=== PATIENT | female | born 1960 | race Caucasian/White ===

== ENCOUNTER 2022-02-13 15:22 | Inpatient (IN) | payer OTHER ==
[2022-02-13 16:16] LABS: #Monocytes 0.9 10x3/uL (0.0-1.1); #Neutrophils 8.5 10x3/uL (1.5-8.4); %Basophils 0.3 % (0.0-2.0); %Eosinophils 0.1 % (0.0-6.0); %Lymphocytes 18.9 % (18.0-47.0); %Monocytes 7.4 % (0.0-10.0); %Neutrophils 72.9 % (40.0-75.0); Hemoglobin 15.2 g/dL (12.0-15.5); Mean Corpuscular HGB CONC 32.6 g/dL (32.0-36.0); Mean Corpuscular Hemoglobin 26.6 pg (27.0-33.0); Mean Corpuscular Volume 81.6 fl (81.6-98.3); Mean Platelet Volume 10.3 fl (7.4-10.4); Platelet Count 283 10x3/uL (150-450); Red Blood Cell (RBC) Count 5.71 10x6/uL (3.90-5.03); White Blood Cell (WBC) Count 11.7 10x3/uL (3.5-10.5)
[2022-02-13] MEDS ORDERED: Ondansetron PF 4 MG/2 ML Vial ONE (16:18)
[2022-02-13 16:26] LABS: ALT (SGPT) 245 U/L (8-55); AST (SGOT) 296 U/L (5-34); Albumin 4.5 g/dL (3.4-4.8); Alkaline Phosphatase 250 U/L (40-110); Anion Gap 22 mmol/L (10-20); BUN (Urea Nitrogen) 30 mg/dL (9.8-20.1); Bilirubin, Total 2.1 mg/dL (0.2-1.2); Calc. Creatinine Clearance 0 mL/min (70-130); Calcium 9.9 mg/dL (7.8-10.44); Carbon Dioxide 18 mmol/L (23-31); Chloride 97 mmol/L (98-107); Estimated GFR 43; Globulin 3.3 g/dL (2.4-3.5); Glucose 80 mg/dL (80-115); Magnesium 2.1 mg/dL (1.6-2.6); Protein, Total 7.8 g/dL (5.8-8.1); Sodium 132 mmol/L (136-145)
[2022-02-13] MEDS ORDERED: Digoxin 0.5 MG/2 ML AMP ONE ×2 (17:06→18:37)
[2022-02-13 17:50] LABS: SARS-CoV-2 NAA Rapid Test Not Detected (NotDetected)
[2022-02-13] MEDS ORDERED: Amiodarone 150 MG/3 ML VIAL ONE (19:24)
[2022-02-13] MEDS ORDERED: Amiodarone In Dextrose 0 ML ONE (19:25)
[2022-02-13] MEDS ORDERED: HYDROcodone/Acetaminophen 5/325 mg Tablet PO PRN (20:24)
[2022-02-13] MEDS ORDERED: Bisacodyl 5 MG TAB PO PRN (20:24)
[2022-02-13] MEDS ORDERED: Ondansetron PF 4 MG/2 ML Vial IVP PRN (20:24)
[2022-02-13] MEDS ORDERED: Nitroglycerin 0.4 MG TAB (25 Tab Bottle) SL PRN (20:27)
[2022-02-13] MEDS ORDERED: Lorazepam 0.5 MG TAB PO PRN (20:29)
[2022-02-13] MEDS ORDERED: HumaLOG 300 UNITS/3 ML VIAL SC PRN (20:32)
[2022-02-13] MEDS ORDERED: Electrolyte Replacement Protocol 1 EACH FS PRN (20:45)
[2022-02-13] MEDS ORDERED: Sotalol HCl 80 MG TAB PO SCH (22:15)
[2022-02-13] MEDS ORDERED: Apixaban 2.5 MG TAB PO SCH (22:15)
[2022-02-13] MEDS ORDERED: Doxepin HCl 25 MG CAP PO SCH (22:15)
[2022-02-13] MEDS ORDERED: Ezetimibe 10 MG TAB PO SCH (22:15)
[2022-02-13 22:25] VITALS: BMI 24.9
[2022-02-13 22:39] LABS: Lactic Acid 2.3 mmol/L (0.5-2.2)
[2022-02-13 22:48] LABS: Troponin I 0.018 ng/mL (< 0.028)
[2022-02-13] MEDS: Digoxin 0.125 MG TAB PO SCH (23:17)
[2022-02-13 23:33] LABS: Troponin I 0.021 ng/mL (< 0.028)
[2022-02-14] MEDS ORDERED: FLU VACC QS2022-23(6MOS UP)/PF 60 MCG/0.5 ML SYRINGE IM ONE (04:30)
[2022-02-14] MEDS: Digoxin 0.125 MG TAB PO SCH (05:14)
[2022-02-14 05:22] LABS: #Monocytes 1.4 10x3/uL (0.0-1.1); #Neutrophils 7.1 10x3/uL (1.5-8.4); %Basophils 0.4 % (0.0-2.0); %Eosinophils 0.1 % (0.0-6.0); %Lymphocytes 23.7 % (18.0-47.0); %Monocytes 12.5 % (0.0-10.0); %Neutrophils 62.9 % (40.0-75.0); Digoxin 2.94 ng/mL (0.8-2.0); Hemoglobin 12.6 g/dL (12.0-15.5); Mean Corpuscular HGB CONC 32.5 g/dL (32.0-36.0); Mean Corpuscular Hemoglobin 26.5 pg (27.0-33.0); Mean Corpuscular Volume 81.7 fl (81.6-98.3); Mean Platelet Volume 10.6 fl (7.4-10.4); Platelet Count 222 10x3/uL (150-450); RBC Distribution Width 17.5 % (11.5-14.5); Red Blood Cell (RBC) Count 4.75 10x6/uL (3.90-5.03); White Blood Cell (WBC) Count 11.2 10x3/uL (3.5-10.5)
[2022-02-14 05:24] LABS: ALT (SGPT) 207 U/L (8-55); AST (SGOT) 237 U/L (5-34); Albumin 3.4 g/dL (3.4-4.8); Alkaline Phosphatase 187 U/L (40-110); Anion Gap 15 mmol/L (10-20); BUN (Urea Nitrogen) 27 mg/dL (9.8-20.1); Bilirubin, Total 1.2 mg/dL (0.2-1.2); Calc. Creatinine Clearance 51 mL/min (70-130); Calcium 8.9 mg/dL (7.8-10.44); Carbon Dioxide 19 mmol/L (23-31); Chloride 104 mmol/L (98-107); Cholesterol 85 mg/dl (< 200 Desired); Estimated GFR 51; Globulin 2.6 g/dL (2.4-3.5); Glucose 128 mg/dL (80-115); HDL Cholesterol 17 mg/dL (>60 Neg Risk); LDL Cholesterol, Calculated 51 mg/dL; Potassium 4.3 mmol/L (3.5-5.1); Sodium 134 mmol/L (136-145); Triglycerides 85 mg/dL (Less than 150)
[2022-02-14 08:05] LABS: Bilirubin Neg (Negative); Blood, Urine 25 (Negative); Glucose, Urine (Dipstick) 250 mg/dL (Negative); Ketone, Urine Negative (Negative); Leukocyte 25 (Negative); Nitrite Negative (Negative); Protein, Urine (Dipstick) 100 mg/dl (Neg-Trace); Urobilinogen Normal mg/dL (Less than 2)
[2022-02-14 08:21] LABS: Clarity Hazy (Clear)
[2022-02-14 08:24] LABS: Bacteria/HPF 2+ HPF (None Seen)
[2022-02-14 08:25] LABS: Mucous/LPF 2+ LPF (<2+); White Blood Cell Cast 0-3 LPF (None Seen)
[2022-02-14] MEDS ORDERED: Sotalol HCl 80 MG TAB PO SCH (09:00)
[2022-02-14] MEDS ORDERED: Furosemide 40 MG TAB PO SCH (09:00)
[2022-02-14] MEDS ORDERED: Digoxin 0.25 MG TAB PO SCH (09:00)
[2022-02-14] MEDS: Atorvastatin Calcium 40 MG TAB PO SCH (09:21)
[2022-02-14] MEDS: Sertraline 100 MG TAB PO SCH (09:21)
[2022-02-14] MEDS: Glimepiride 2 MG TAB PO SCH (09:21)
[2022-02-14] MEDS: Aspirin Chewable 81 MG TAB PO SCH (09:21)
[2022-02-14] MEDS: Sodium Bicarbonate Tab 325 MG TAB PO SCH ×2 (09:22→21:22)
[2022-02-14] MEDS: Apixaban 2.5 MG TAB PO SCH ×2 (09:22→21:22)
[2022-02-14] MEDS: Empagliflozin 25 MG TAB PO SCH (09:22)
[2022-02-14 11:59] LABS: Creatinine, Urine 69.71 mg/dL (47-110)
[2022-02-14 15:24] LABS: Magnesium 1.9 mg/dL (1.6-2.6)
[2022-02-14] MEDS ORDERED: Magnesium 2 GM/50 ML(in water) 2 GM in Premix Bag 1 BAG IVPB SCH (16:45)
[2022-02-14 16:57] LABS: Sodium, Urine 23 mmol/L (Not Available); Urea Nitrogen, Random Urine 790 mg/dl
[2022-02-14] MEDS ORDERED: Doxepin HCl 25 MG CAP PO SCH (21:00)
[2022-02-14] MEDS ORDERED: Ezetimibe 10 MG TAB PO SCH (21:00)
[2022-02-14] MEDS: Sotalol HCl 80 MG TAB PO SCH (21:21)
[2022-02-14 21:25] LABS: Anion Gap 14 mmol/L (10-20); BUN (Urea Nitrogen) 25 mg/dL (9.8-20.1); Calc. Creatinine Clearance 49 mL/min (70-130); Calcium 9.6 mg/dL (7.8-10.44); Carbon Dioxide 32 mmol/L (23-31); Chloride 99 mmol/L (98-107); Estimated GFR 49; Glucose 125 mg/dL (80-115); Potassium 4.3 mmol/L (3.5-5.1); Sodium 141 mmol/L (136-145)
[2022-02-15 06:52] LABS: Hemoglobin 13.2 g/dL (12.0-15.5); Mean Corpuscular HGB CONC 31.9 g/dL (32.0-36.0); Mean Corpuscular Hemoglobin 26.2 pg (27.0-33.0); Mean Corpuscular Volume 82.1 fl (81.6-98.3); Mean Platelet Volume 10.5 fl (7.4-10.4); Platelet Count 186 10x3/uL (150-450); RBC Distribution Width 17.7 % (11.5-14.5); Red Blood Cell (RBC) Count 5.04 10x6/uL (3.90-5.03); White Blood Cell (WBC) Count 7.2 10x3/uL (3.5-10.5)
[2022-02-15 07:30] LABS: MDiff Complete? YES
[2022-02-15 07:37] LABS: Eosinophils 1 % (0-10); Lymphocytes 18 % (21-51); Monocytes 14 % (0-10); Neutrophil 66 % (42-75)
[2022-02-15 07:40] LABS: Platelet Morphology Comment Appears Adequate; RBC Morphology Normal
[2022-02-15] MEDS: Apixaban 2.5 MG TAB PO SCH (08:46)
[2022-02-15] MEDS: Aspirin Chewable 81 MG TAB PO SCH (08:46)
[2022-02-15] MEDS: Empagliflozin 25 MG TAB PO SCH (08:47)
[2022-02-15] MEDS: Atorvastatin Calcium 40 MG TAB PO SCH (08:47)
[2022-02-15] MEDS: Sertraline 100 MG TAB PO SCH (08:47)
[2022-02-15] MEDS: Glimepiride 2 MG TAB PO SCH (08:48)
[2022-02-15] MEDS: Sodium Bicarbonate Tab 325 MG TAB PO SCH (08:48)
[2022-02-15] MEDS: Sotalol HCl 80 MG TAB PO SCH (08:49)
[2022-02-15 09:18] LABS: ALT (SGPT) 177 U/L (8-55); AST (SGOT) 158 U/L (5-34); Albumin 3.4 g/dL (3.4-4.8); Alkaline Phosphatase 209 U/L (40-110); Anion Gap 16 mmol/L (10-20); BUN (Urea Nitrogen) 18 mg/dL (9.8-20.1); Bilirubin, Total 1.3 mg/dL (0.2-1.2); Calc. Creatinine Clearance 65 mL/min (70-130); Calcium 8.8 mg/dL (7.8-10.44); Carbon Dioxide 27 mmol/L (23-31); Chloride 101 mmol/L (98-107); Estimated GFR 69; Globulin 2.7 g/dL (2.4-3.5); Magnesium 2.2 mg/dL (1.6-2.6); Potassium 3.4 mmol/L (3.5-5.1); Protein, Total 6.1 g/dL (5.8-8.1); Sodium 141 mmol/L (136-145)
[2022-02-15 09:20] LABS: ALT (SGPT) 176 U/L (8-55); AST (SGOT) 156 U/L (5-34); Albumin 3.3 g/dL (3.4-4.8); Alkaline Phosphatase 206 U/L (40-110); Bilirubin, Direct 0.7 mg/dL (0.1-0.3); Bilirubin, Total 1.3 mg/dL (0.2-1.2)
[2022-02-15 09:37] LABS: Glucose 49 mg/dL (80-115)
[2022-02-15] MEDS ORDERED: Potassium Chloride 20 MEQ TAB PO SCH (10:00)
[2022-02-15 17:17] VITALS: BP 110/70; TEMP 98.2
[2022-02-16] MEDS ORDERED: Digoxin 0.25 MG TAB PO SCH (09:00)
== END 2022-02-15 18:40 | disposition home or self-care (01) | DRG 291 ==
LOC: CSHERS 15:22 → CSHTELE 22:05
PROVIDERS: ADMIT Student in an Organized Health Care Education/Training Program; ATTEND Internal Medicine
DX: I13.0 Hypertensive heart and chronic kidney disease with heart failure and stage 1 through stage 4 chronic kidney disease, or unspecified chronic kidney disease (principal); I50.23 Acute on chronic systolic (congestive) heart failure; E87.1 Hypo-osmolality and hyponatremia; E87.20 Acidosis, unspecified; N17.9 Acute kidney failure, unspecified; I48.92 Unspecified atrial flutter; Z20.822 Contact with and (suspected) exposure to COVID-19; E11.22 Type 2 diabetes mellitus with diabetic chronic kidney disease; E87.6 Hypokalemia; F41.9 Anxiety disorder, unspecified; I25.10 Atherosclerotic heart disease of native coronary artery without angina pectoris; I48.0 Paroxysmal atrial fibrillation; I25.5 Ischemic cardiomyopathy; K21.9 Gastro-esophageal reflux disease without esophagitis; F32.9 Major depressive disorder, single episode, unspecified; N18.31 Chronic kidney disease, stage 3a; E78.5 Hyperlipidemia, unspecified; Z95.2 Presence of prosthetic heart valve; Z79.01 Long term (current) use of anticoagulants; Z79.899 Other long term (current) drug therapy; Z79.84 Long term (current) use of oral hypoglycemic drugs; Z88.8 Allergy status to other drugs, medicaments and biological substances; Z95.810 Presence of automatic (implantable) cardiac defibrillator; Z95.5 Presence of coronary angioplasty implant and graft; Z90.89 Acquired absence of other organs; Z87.891 Personal history of nicotine dependence
CPT/HCPCS: 36415; 36416; 71045; 76705; 80053; 80061; 80162; 81001; 82570; 83605; 83735; 83880; 84156; 84300; 84443; 84484; 84540; 85025; 87040; 93005; 93010; 94760; 96374; 96375; 96376; J0282; J1160; J2405; J3475

== ENCOUNTER 2022-09-24 10:03 | Outpatient (CLI) | payer OTHER ==
[2022-09-24 11:05] LABS: Mean Corpuscular HGB CONC 32.5 g/dL (32.0-36.0); Mean Corpuscular Volume 89.2 fl (81.6-98.3); Platelet Count 273 10x3/uL (150-450); RBC Distribution Width 13.3 % (11.5-14.5); Red Blood Cell (RBC) Count 4.83 10x6/uL (3.90-5.03); White Blood Cell (WBC) Count 10.9 10x3/uL (3.5-10.5)
[2022-09-24 11:14] LABS: Prothrombin Time 10.9 sec (9.5-12.1)
[2022-09-24 11:26] LABS: ALT (SGPT) 21 U/L (8-55); AST (SGOT) 27 U/L (5-34); Albumin 4.4 g/dL (3.4-4.8); Alkaline Phosphatase 195 U/L (40-110); Anion Gap 20 mmol/L (10-20); BUN (Urea Nitrogen) 27 mg/dL (9.8-20.1); Bilirubin, Total 0.4 mg/dL (0.2-1.2); Calc. Creatinine Clearance 0 mL/min (70-130); Calcium 9.8 mg/dL (7.8-10.44); Carbon Dioxide 20 mmol/L (23-31); Chloride 99 mmol/L (98-107); Estimated GFR 40; Globulin 3.5 g/dL (2.4-3.5); Glucose 222 mg/dL (80-115); Magnesium 2.4 mg/dL (1.6-2.6); Potassium 4.2 mmol/L (3.5-5.1); Protein, Total 7.9 g/dL (5.8-8.1); Sodium 135 mmol/L (136-145)
== END 2022-09-24 10:04 | disposition home or self-care (01) ==
LOC: CSHLAB 10:03
PROVIDERS: ATTEND Specialist
DX: Z01.812 Encounter for preprocedural laboratory examination (principal); I48.91 Unspecified atrial fibrillation
CPT/HCPCS: 80053; 83735; 85027; 85610

== ENCOUNTER → 2022-09-25 | Day surgery (SDC) | payer OTHER | LOC: CSHSDC 09:52 | PROVIDERS: ATTEND Specialist | DX: I48.19 Other persistent atrial fibrillation (principal); I25.10 Atherosclerotic heart disease of native coronary artery without angina pectoris; I11.0 Hypertensive heart disease with heart failure; I50.42 Chronic combined systolic (congestive) and diastolic (congestive) heart failure; E78.2 Mixed hyperlipidemia; I25.2 Old myocardial infarction; E11.9 Type 2 diabetes mellitus without complications; Z87.891 Personal history of nicotine dependence; Z79.84 Long term (current) use of oral hypoglycemic drugs; Z79.899 Other long term (current) drug therapy; Z88.8 Allergy status to other drugs, medicaments and biological substances; Z95.5 Presence of coronary angioplasty implant and graft; Z53.9 Procedure and treatment not carried out, unspecified reason | CPT/HCPCS: 93005; L8614 ×2; 93010 ==

== ENCOUNTER 2023-03-11 12:25 | Outpatient (CLI) | payer OTHER, MEDICAID ==
[2023-03-11 15:29] LABS: Hematocrit 44.3 % (34.9-44.5); Hemoglobin 14.5 g/dL (12.0-15.5); Mean Corpuscular HGB CONC 32.7 g/dL (32.0-36.0); Mean Corpuscular Hemoglobin 28.5 pg (27.0-33.0); Mean Corpuscular Volume 87.2 fl (81.6-98.3); Mean Platelet Volume 10.9 fl (7.4-10.4); Platelet Count 185 10x3/uL (150-450); RBC Distribution Width 13.8 % (11.5-14.5); Red Blood Cell (RBC) Count 5.08 10x6/uL (3.90-5.03); White Blood Cell (WBC) Count 9.1 10x3/uL (3.5-10.5)
[2023-03-11 15:58] LABS: ALT (SGPT) 37 U/L (8-55); AST (SGOT) 32 U/L (5-34); Albumin 4.2 g/dL (3.4-4.8); Alkaline Phosphatase 240 U/L (40-110); Anion Gap 15 mmol/L (10-20); BUN (Urea Nitrogen) 12 mg/dL (9.8-20.1); Bilirubin, Total 0.5 mg/dL (0.2-1.2); Calc. Creatinine Clearance 0 mL/min (70-130); Calcium 9.3 mg/dL (7.8-10.44); Carbon Dioxide 24 mmol/L (23-31); Chloride 101 mmol/L (98-107); Estimated GFR 40; Globulin 2.8 g/dL (2.4-3.5); Glucose 215 mg/dL (80-115); Magnesium 2.1 mg/dL (1.6-2.6); Sodium 136 mmol/L (136-145)
[2023-03-11 16:43] LABS: INR-International Normal Ratio 1.1; Prothrombin Time 11.5 sec (9.5-12.1)
== END 2023-03-11 12:26 | disposition home or self-care (01) ==
LOC: CSHLAB 12:25
PROVIDERS: ATTEND Specialist
DX: Z01.818 Encounter for other preprocedural examination (principal); I48.91 Unspecified atrial fibrillation
CPT/HCPCS: 80053; 83735; 85027; 85610; 93005; 93010

== ENCOUNTER 2023-03-12 09:41 | Day surgery (SDC) | payer OTHER, MEDICAID ==
[2023-03-12] MEDS ORDERED: PROPOFOL 40 ML ONE (10:49)
[2023-03-12] MEDS ORDERED: Midazolam HCl 2 mg/2 ml Vial ONE (10:49)
== END 2023-03-12 13:24 | disposition home or self-care (01) ==
LOC: CSHSDC 09:41
PROVIDERS: ATTEND Specialist
PROC: 5A2204Z Restoration of Cardiac Rhythm, Single (ICD-10-PCS; principal; 2023-03-12)
DX: I48.19 Other persistent atrial fibrillation (principal); I48.92 Unspecified atrial flutter; I25.118 Atherosclerotic heart disease of native coronary artery with other forms of angina pectoris; I11.0 Hypertensive heart disease with heart failure; I50.42 Chronic combined systolic (congestive) and diastolic (congestive) heart failure; E78.2 Mixed hyperlipidemia; F41.1 Generalized anxiety disorder; I25.2 Old myocardial infarction; I34.1 Nonrheumatic mitral (valve) prolapse; E11.59 Type 2 diabetes mellitus with other circulatory complications; M17.9 Osteoarthritis of knee, unspecified; I65.23 Occlusion and stenosis of bilateral carotid arteries; Z90.89 Acquired absence of other organs; Z79.01 Long term (current) use of anticoagulants; Z87.891 Personal history of nicotine dependence; Z88.8 Allergy status to other drugs, medicaments and biological substances; Z79.84 Long term (current) use of oral hypoglycemic drugs; Z95.2 Presence of prosthetic heart valve; Z79.899 Other long term (current) drug therapy; Z95.810 Presence of automatic (implantable) cardiac defibrillator
CPT/HCPCS: 92960; 93005; 93010; J2250; J2704